=== PATIENT | male | born 1990 | race Caucasian/White ===

== ENCOUNTER 2016-08-14 16:23 | Emergency (ER) | payer BC, SELFPAY ==
[~2016-08-14] VITALS: Ht 190.5 cm; Wt 88.5 kg
[2016-08-14] MEDS ORDERED: ZOFR4TAB3 PO (18:10)
[2016-08-14 18:34] VITALS: BP 128/70
== END 2016-08-14 18:36 | disposition home or self-care (01) ==
LOC: M ED 18:25
DX: R11.10 Vomiting, unspecified (principal)

== ENCOUNTER 2017-02-18 21:19 | Emergency (ER) | payer BC ==
[~2017-02-18] VITALS: Ht 190.5 cm; Wt 88.6 kg
[2017-02-18 21:19] VITALS: BP 132/70
[~2017-02-18 21:19] MED LIST: ZOFR4TAB3 PO
== END 2017-02-19 02:08 | disposition home or self-care (01) ==
LOC: M ED 21:19
DX: J06.9 Acute upper respiratory infection, unspecified (principal)

== ENCOUNTER 2017-05-02 02:56 | Emergency (ER) | payer BC ==
[2017-05-02 04:19] LABS: HEMATOCRIT 42.2 % (42.0-52.0); HEMOGLOBIN 14.5 g/dl (14.0-18.0); MEAN CORPUSCULAR HEMOGLOBIN 29.4 pg (27.0-33.0); MEAN CORPUSCULAR HGB CONC 34.4 g/dl (32.0-36.5); MEAN CORPUSCULAR VOLUME 85.6 fl (80.0-96.0); PLATELET COUNT, AUTOMATED 260 10^3/uL (150-450); RED BLOOD COUNT 4.93 10^6/uL (4.30-6.10); RED CELL DISTRIBUTION WIDTH 11.9 % (11.5-14.5); WHITE BLOOD COUNT 9.7 10^3/uL (4.0-10.0)
[2017-05-02 04:40] LABS: ALBUMIN 4.2 GM/DL (3.2-5.2); ALKALINE PHOSPHATASE 62 U/L (45-117); ALT/SGPT 28 U/L (12-78); ANION GAP 10 MEQ/L (8-16); AST/SGOT 17 U/L (7-37); BILIRUBIN,DIRECT 0.2 MG/DL (0.0-0.2); BILIRUBIN,TOTAL 0.5 MG/DL (0.2-1.0); BLOOD UREA NITROGEN 13 MG/DL (7-18); CALCIUM LEVEL 8.5 MG/DL (8.5-10.1); CARBON DIOXIDE LEVEL 27 MEQ/L (21-32); CHLORIDE LEVEL 104 MEQ/L (98-107); CREATININE FOR GFR 0.91 MG/DL (0.70-1.30); ETHYL ALCOHOL (ETHANOL) < 0.003 % (0.000-0.010); GLOMERULAR FILTRATION RATE > 60.0 (>60); GLUCOSE, FASTING 91 MG/DL (70-100); POTASSIUM SERUM 4.1 MEQ/L (3.5-5.1); SALICYLATE LEVEL < 1.7 MG/DL (5.0-30.0); SODIUM LEVEL 141 MEQ/L (136-145); TOTAL PROTEIN 7.2 GM/DL (6.4-8.2)
[2017-05-02 04:42] LABS: AMPHETAMINES LEVEL URINE NEGATIVE (NEGATIVE); BARBITURATES URINE NEGATIVE (NEGATIVE); BENZODIAZEPINES URINE NEGATIVE (NEGATIVE); CANNABINOIDS URINE POSITIVE (NEGATIVE); COCAINE METABOLITE URINE POSITIVE (NEGATIVE); METHADONE URINE NEGATIVE (NEGATIVE); OPIATES URINE NEGATIVE (NEGATIVE); PHENCYCLIDINE URINE NEGATIVE (NEGATIVE)
[2017-05-02 05:10] LABS: ACETAMINOPHEN LEVEL < 2.0 UG/ML (10.0-30.0)
== END 2017-05-02 10:25 | disposition home or self-care (01) ==
LOC: M ED 02:56
DX: F32.9 Major depressive disorder, single episode, unspecified (principal); F19.10 Other psychoactive substance abuse, uncomplicated; F43.0 Acute stress reaction; F17.200 Nicotine dependence, unspecified, uncomplicated
CPT/HCPCS: G0480

== ENCOUNTER → 2019-03-07 | Outpatient (CLI) | payer MEDICAID, SELFPAY ==
[~2019-03-07] MED LIST changes: +ZOFR4TAB14 PO; -ZOFR4TAB3 PO
== END ==
LOC: M OUTALCOH 09:54
PROVIDERS: ATTEND Psychiatry & Neurology Psychiatry
DX: Z03.89 Encounter for observation for other suspected diseases and conditions ruled out (principal)

== ENCOUNTER 2019-04-07 08:00 | Outpatient (RCR) | payer MEDICAID | END 2019-04-25 | LOC: M OUTALCOH 08:00 | PROVIDERS: ATTEND Psychiatry & Neurology Psychiatry | DX: Z03.89 Encounter for observation for other suspected diseases and conditions ruled out (principal); F17.200 Nicotine dependence, unspecified, uncomplicated ==

== ENCOUNTER → 2019-04-17 | Outpatient (REF) | payer OTHER ==
[2019-04-17 18:04] LABS: CHLAMYDIA DNA AMPLIFICATION NEGATIVE (NEGATIVE); GC DNA AMPLIFICATION POSITIVE (NEGATIVE)
== END ==
LOC: M LAB REF 16:01
PROVIDERS: ATTEND Surgery
DX: A64 Unspecified sexually transmitted disease (principal)

== ENCOUNTER → 2019-04-30 | Outpatient (CLI) | payer OTHER ==
--- NOTE | 2019-05-01 12:27 | REP ---
Clinical: Injury. Technique: AP, lateral, bilateral oblique views of the right second digit. Findings: Deformity involving the proximal phalanx and associated proximal interphalangeal joint appears old/nonacute, but requires correlation given the patient's denial of old injury. Remainder examination appears normal. Impression: Deformity involving the proximal phalanx and PIP joint requires correlation. Findings appear old despite the patient's denial of old injury. Electronically Signed by Mack Quiroga MD 05/01/2019 12:19 P
== END ==
LOC: M WUC 12:32
PROVIDERS: ATTEND Surgery
DX: M84.344A Stress fracture, right finger(s), initial encounter for fracture (principal)

== ENCOUNTER → 2019-07-31 | Outpatient (CLI) | payer MEDICAID | LOC: M OUTALCOH 07:58 | PROVIDERS: ATTEND Psychiatry & Neurology Addiction Medicine | DX: F15.20 Other stimulant dependence, uncomplicated (principal) ==

== ENCOUNTER 2019-08-22 08:45 | Outpatient (RCR) | payer MEDICAID | END 2019-08-24 | LOC: M OUTALCOH 08:45 | PROVIDERS: ATTEND Psychiatry & Neurology Addiction Medicine | DX: F15.20 Other stimulant dependence, uncomplicated (principal); F10.20 Alcohol dependence, uncomplicated ==

== ENCOUNTER 2019-09-11 11:00 | Outpatient (RCR) | payer MEDICAID | END 2019-09-23 | LOC: M OUTALCOH 11:00 | PROVIDERS: ATTEND Psychiatry & Neurology Addiction Medicine | DX: F15.20 Other stimulant dependence, uncomplicated (principal); F10.20 Alcohol dependence, uncomplicated ==

== ENCOUNTER → 2019-12-08 | Outpatient (CLI) | payer OTHER | LOC: M OUTALCOH 08:20 | PROVIDERS: ATTEND Psychiatry & Neurology Addiction Medicine | DX: F11.20 Opioid dependence, uncomplicated (principal); F15.20 Other stimulant dependence, uncomplicated ==

== ENCOUNTER → 2020-11-22 | Outpatient (CLI) | payer OTHER | LOC: M OUTALCOH 08:33 | PROVIDERS: ATTEND Psychiatry & Neurology Psychiatry | DX: F15.20 Other stimulant dependence, uncomplicated (principal) ==

== ENCOUNTER 2020-12-22 14:05 | Outpatient (RCR) | payer OTHER | END 2020-12-23 | LOC: M OUTALCOH 14:05 | PROVIDERS: ATTEND Psychiatry & Neurology Psychiatry | DX: F15.20 Other stimulant dependence, uncomplicated (principal); F11.20 Opioid dependence, uncomplicated ==

== ENCOUNTER → 2021-01-11 | Outpatient (CLI) | payer OTHER ==
[2021-01-11 15:15] LABS: HEMATOCRIT 44.3 % (42.0-52.0); MEAN CORPUSCULAR HEMOGLOBIN 29.3 pg (27.0-33.0); MEAN CORPUSCULAR HGB CONC 33.9 g/dl (32.0-36.5); MEAN CORPUSCULAR VOLUME 86.5 fl (80.0-96.0); PLATELET COUNT, AUTOMATED 216 10^3/uL (150-450); RED BLOOD COUNT 5.12 10^6/uL (4.30-6.10)
[2021-01-11 15:54] LABS: ALBUMIN 4.3 GM/DL (3.2-5.2); ALT/SGPT 56 U/L (12-78); BILIRUBIN,TOTAL 0.7 MG/DL (0.2-1.0); BLOOD UREA NITROGEN 19 MG/DL (7-18); CALCIUM LEVEL 9.2 MG/DL (8.5-10.1); CARBON DIOXIDE LEVEL 29 MEQ/L (21-32); CHLORIDE LEVEL 105 MEQ/L (98-107); CREATININE FOR GFR 0.93 MG/DL (0.70-1.30); FREE T4 1.08 NG/DL (0.76-1.46); GLOMERULAR FILTRATION RATE > 60.0 (>60); GLUCOSE, FASTING 78 MG/DL (70-100); POTASSIUM SERUM 4.1 MEQ/L (3.5-5.1); SODIUM LEVEL 139 MEQ/L (136-145)
== END ==
LOC: M PLALAB 12:42
PROVIDERS: ATTEND Psychiatry & Neurology Psychiatry
DX: F91.9 Conduct disorder, unspecified (principal); F19.20 Other psychoactive substance dependence, uncomplicated; Z65.3 Problems related to other legal circumstances

== ENCOUNTER 2021-01-20 10:00 | Outpatient (RCR) | payer OTHER | END 2021-01-23 | LOC: M OUTALCOH 10:00 | PROVIDERS: ATTEND Psychiatry & Neurology Psychiatry | DX: F15.20 Other stimulant dependence, uncomplicated (principal); F11.21 Opioid dependence, in remission ==

== ENCOUNTER → 2021-02-22 | Outpatient (RCR) | payer OTHER | LOC: M OUTALCOH 01-24 15:08 | PROVIDERS: ATTEND Psychiatry & Neurology Psychiatry | DX: F15.20 Other stimulant dependence, uncomplicated (principal); F11.20 Opioid dependence, uncomplicated ==

== ENCOUNTER → 2021-03-02 | Outpatient (CLI) | payer OTHER | LOC: M LABSMTC 12:35 | PROVIDERS: ATTEND Pediatrics | DX: Z20.828 Contact with and (suspected) exposure to other viral communicable diseases (principal); Z11.52 Encounter for screening for COVID-19 | CPT/HCPCS: C9803; U0003 ==

== ENCOUNTER 2021-03-23 13:59 | Outpatient (RCR) | payer OTHER | END 2021-03-25 | LOC: M OUTALCOH 13:59 | PROVIDERS: ATTEND Psychiatry & Neurology Psychiatry | DX: F15.20 Other stimulant dependence, uncomplicated (principal); F11.21 Opioid dependence, in remission ==

== ENCOUNTER → 2021-04-25 | Outpatient (RCR) | payer OTHER | LOC: M OUTALCOH 03-29 13:23 | PROVIDERS: ATTEND Psychiatry & Neurology Psychiatry | DX: F15.20 Other stimulant dependence, uncomplicated (principal); F11.21 Opioid dependence, in remission ==

== ENCOUNTER → 2021-05-23 | Outpatient (RCR) | payer OTHER | LOC: M OUTALCOH 04-27 08:00 | PROVIDERS: ATTEND Psychiatry & Neurology Psychiatry | DX: F15.20 Other stimulant dependence, uncomplicated (principal); F11.21 Opioid dependence, in remission ==

== ENCOUNTER 2021-06-09 10:55 | Outpatient (RCR) | payer OTHER | END 2021-06-23 | LOC: M OUTALCOH 10:55 | PROVIDERS: ATTEND Psychiatry & Neurology Psychiatry | DX: F15.20 Other stimulant dependence, uncomplicated (principal); F11.21 Opioid dependence, in remission ==

== ENCOUNTER → 2021-08-23 | Outpatient (RCR) | payer OTHER | LOC: M OUTALCOH 08-01 16:00 | PROVIDERS: ATTEND Psychiatry & Neurology Psychiatry | DX: F15.20 Other stimulant dependence, uncomplicated (principal) ==

== ENCOUNTER 2021-10-03 11:00 | Outpatient (RCR) | payer OTHER | END 2021-10-23 | LOC: M OUTALCOH 11:00 | PROVIDERS: ATTEND Psychiatry & Neurology Psychiatry | DX: F15.20 Other stimulant dependence, uncomplicated (principal) ==

== ENCOUNTER → 2023-09-19 | Outpatient (CLI) | payer MEDICAID, OTHER ==
[2023-09-19 15:10] LABS: BASO % 0.6 % (0.0-1.0); EOS # 0.1 10^3/uL (0.0-0.5); HEMOGLOBIN 13.9 g/dl (13.5-17.5); LYMPH # 1.4 10^3/uL (1.5-5.0); LYMPH % 20.2 % (24.0-44.0); MEAN CORPUSCULAR HEMOGLOBIN 30.1 pg (27.0-33.0); MEAN CORPUSCULAR HGB CONC 33.9 g/dl (32.0-36.5); MEAN CORPUSCULAR VOLUME 88.7 fl (80.0-96.0); MONO # 0.5 10^3/uL (0.0-0.8); MONO % 7.5 % (2.0-8.0); NEUTROPHILS % 70.6 % (36.0-66.0); PLATELET COUNT, AUTOMATED 260 10^3/uL (150-450); RED BLOOD COUNT 4.62 10^6/uL (4.30-6.10)
[2023-09-19 15:12] LABS: AMORPHOUS SEDIMENT SMALL (NEGATIVE); BACTERIA, URINE AUTO NEGATIVE (NEGATIVE); MUCUS, URINE SMALL (NEGATIVE); RBC, URINE AUTO 0 /HPF (0-3); SQUAMOUS EPITHELIAL CELL UR AU 0 /HPF (0-6); WBC, URINE AUTO 2 /HPF (0-3)
[2023-09-19 15:32] LABS: ALBUMIN 4.4 G/DL (3.2-5.2); ALKALINE PHOSPHATASE 62 U/L (46-116); ALT/SGPT 26 U/L (7.0-40); AST/SGOT 25 U/L (<34); BLOOD UREA NITROGEN 14 MG/DL (9-23); CALCIUM LEVEL 9.4 MG/DL (8.5-10.1); CARBON DIOXIDE LEVEL 32 MMOL/L (20-31); CHLORIDE LEVEL 103 MMOL/L (98-107); CREATININE FOR GFR 0.84 MG/DL (0.70-1.30); GLOMERULAR FILTRATION RATE > 60.0 (>60); GLUCOSE, FASTING 102 MG/DL (60-100); POTASSIUM SERUM 4.1 MMOL/L (3.5-5.1); SODIUM LEVEL 140 MMOL/L (136-145); TOTAL PROTEIN 6.9 G/DL (5.7-8.2)
[2023-09-19 15:52] LABS: HEPATITIS B SURFACE ANTIGEN NEGATIVE (NEGATIVE)
[2023-09-19 16:14] LABS: HEPATITIS B CORE ANTIBODY IGM NEGATIVE (NEGATIVE)
[2023-09-19 16:15] LABS: HEPATITIS C VIRUS ABY INDEX > 11.00 INDEX (<0.8)
== END ==
LOC: M LAB 14:05
PROVIDERS: ATTEND Nurse Practitioner Adult Health
DX: Z00.8 Encounter for other general examination (principal)

== ENCOUNTER → 2024-02-04 | Outpatient (REF) | payer OTHER | LOC: M LAB REF 20:13 | PROVIDERS: ATTEND Physician Assistant | DX: J02.9 Acute pharyngitis, unspecified (principal) ==

== ENCOUNTER 2024-07-23 14:47 | Emergency (ER) | payer OTHER ==
[~2024-07-23] VITALS: Ht 190.5 cm; Wt 81.1 kg
[2024-07-23] MEDS: CEPHALEXIN 500 MG CAP PO ONE (15:43)
[2024-07-23] MEDS: BOOSTRIX VACCINE (TETANUS/DIPHTH/ACEL. PERTUSSIS) 0.5ML SYR IM.IMMUN ONE (15:44)
[2024-07-23 15:54] VITALS: BP 113/64; TEMP 99.3; O2SAT 99
== END 2024-07-23 15:55 | disposition home or self-care (01) ==
LOC: M ED 14:47
DX: S71.111A Laceration without foreign body, right thigh, initial encounter (principal); W26.0XXA Contact with knife, initial encounter; Y92.009 Unspecified place in unspecified non-institutional (private) residence as the place of occurrence of the external cause; Y93.89 Activity, other specified; Y99.9 Unspecified external cause status; Z23 Encounter for immunization

== ENCOUNTER 2024-10-01 22:28 | Emergency (ER) | payer OTHER ==
[~2024-10-01] VITALS: Ht 190.5 cm; Wt 84.1 kg
[2024-10-02 07:35] LABS: BARBITURATES URINE NEGATIVE (NEGATIVE); COCAINE METABOLITE URINE NEGATIVE (NEGATIVE); METHADONE URINE NEGATIVE (NEGATIVE); OPIATES URINE NEGATIVE (NEGATIVE)
[2024-10-02 07:36] LABS: AMPHETAMINES LEVEL URINE NEGATIVE (NEGATIVE); BENZODIAZEPINES URINE NEGATIVE (NEGATIVE); CANNABINOIDS URINE NEGATIVE (NEGATIVE); PHENCYCLIDINE URINE NEGATIVE (NEGATIVE)
[2024-10-02 07:58] VITALS: BP 121/58; TEMP 97.3; O2SAT 99
== END 2024-10-02 08:00 | disposition home or self-care (01) ==
LOC: M ED 22:28
DX: Z02.83 Encounter for blood-alcohol and blood-drug test (principal)

== ENCOUNTER 2024-10-04 13:50 | Emergency (ER) | payer OTHER ==
[~2024-10-04] VITALS: Ht 190.5 cm; Wt 84.4 kg
[2024-10-04 17:10] LABS: AMPHETAMINES LEVEL URINE NEGATIVE (NEGATIVE)
[2024-10-04 17:11] LABS: BARBITURATES URINE NEGATIVE (NEGATIVE); BENZODIAZEPINES URINE NEGATIVE (NEGATIVE); CANNABINOIDS URINE NEGATIVE (NEGATIVE); COCAINE METABOLITE URINE NEGATIVE (NEGATIVE); METHADONE URINE NEGATIVE (NEGATIVE); OPIATES URINE NEGATIVE (NEGATIVE); PHENCYCLIDINE URINE NEGATIVE (NEGATIVE)
[2024-10-04 17:57] VITALS: BP 121/60; TEMP 97.5; O2SAT 100
== END 2024-10-04 17:58 | disposition home or self-care (01) ==
LOC: M ED 13:50
DX: Z02.83 Encounter for blood-alcohol and blood-drug test (principal)

== ENCOUNTER → 2024-10-17 | Outpatient (REF) | payer OTHER ==
[2024-10-17 17:46] LABS: ALT/SGPT 41 U/L (7.0-40); AST/SGOT 50 U/L (<34); CALCIUM LEVEL 8.9 MG/DL (8.5-10.1); CARBON DIOXIDE LEVEL 28 MMOL/L (20-31); CHLORIDE LEVEL 104 MMOL/L (98-107); CREATININE FOR GFR 1.11 MG/DL (0.70-1.30); GLOMERULAR FILTRATION RATE > 90.0 (>60); POTASSIUM SERUM 4.2 MMOL/L (3.5-5.1); SODIUM LEVEL 144 MMOL/L (136-145)
[2024-10-17 17:48] LABS: TESTOSTERONE 384 NG/DL (241-827)
[2024-10-17 18:08] LABS: BASO # 0.0 10^3/uL (0.0-0.2); BASO % 0.4 % (0.0-1.0); EOS # 0.1 10^3/uL (0.0-0.5); EOS % 0.9 % (0.0-3.0); LYMPH # 1.8 10^3/uL (1.5-5.0); LYMPH % 34.3 % (24.0-44.0); MONO # 0.5 10^3/uL (0.0-0.8); MONO % 8.8 % (2.0-8.0); NEUTROPHILS # 3.0 10^3/uL (1.5-8.5); NEUTROPHILS % 55.4 % (36.0-66.0); PLATELET COUNT, AUTOMATED 230 10^3/uL (150-450)
[2024-10-17 18:11] LABS: ESTIMATED AVERAGE GLUCOSE 91.0 MG/DL (60-110)
== END ==
LOC: M LAB REF 17:21
PROVIDERS: ATTEND Family Medicine Addiction Medicine
DX: R53.82 Chronic fatigue, unspecified (principal)

== ENCOUNTER → 2024-12-12 | Outpatient (REF) | payer OTHER ==
[2024-12-12 13:54] LABS: ALT/SGPT 40 U/L (7.0-40); AST/SGOT 52 U/L (<34); CALCIUM LEVEL 9.0 MG/DL (8.5-10.1); CARBON DIOXIDE LEVEL 29 MMOL/L (20-31); CHLORIDE LEVEL 107 MMOL/L (98-107); CREATININE FOR GFR 0.96 MG/DL (0.70-1.30); GLOMERULAR FILTRATION RATE > 90.0 (>60); POTASSIUM SERUM 4.2 MMOL/L (3.5-5.1); SODIUM LEVEL 142 MMOL/L (136-145)
[2024-12-12 13:56] LABS: TESTOSTERONE 798 NG/DL (241-827)
[2024-12-15 06:51] LABS: HCV RNA QUANTITATION <15 NOT DETECTED IU/mL (NOT DETECTED); HCV RNA log10 <1.18 NOT DETECTED Log IU/mL (NOT DETECTED)
== END ==
LOC: M LAB REF 12:50
PROVIDERS: ATTEND Family Medicine Addiction Medicine
DX: R74.8 Abnormal levels of other serum enzymes (principal); R79.89 Other specified abnormal findings of blood chemistry